=== PATIENT | male | born 1940 | race Caucasian/White ===

== ENCOUNTER 2019-08-10 08:43 | Day surgery (SDC) | payer MEDICARE ==
[~2019-08-10] VITALS: Ht 188 cm; Wt 109.0 kg
[~2019-08-10 08:43] MED LIST: AMIO200T42 PO; ASPI-496 PO; CHOL5000 PO; DABI150C PO; FERR325T18 PO; GLUC15006 PO; HYDR25TA6 PO; LANS30CA PO; LEVO112T4 PO; LEVO150T5 PO; LOSA25TA25 PO; METO-99 PO; POTA25PA PO; PRAV40TA2 PO; SUCR1TAB33 PO; TAMS0.4C2 PO; UBID50TA PO
[2019-08-10 09:06] VITALS: BP 145/95
[2019-08-10] MEDS ORDERED: WARF2TAB PO (09:18)
[2019-08-10] MEDS ORDERED: HYDROCHLOROTH12.5 MG PO (09:19)
[2019-08-10] MEDS ORDERED: LOSA50TA14 PO (09:19)
[2019-08-10] MEDS ORDERED: PRAV20TA PO (09:21)
[2019-08-10] MEDS ORDERED: SODIUM CHLORIDE 0.9% 1,000 ML IV ONE (09:30)
[2019-08-10] MEDS ORDERED: PROPOFOL 10 MG/ML, 20ML ONE (10:44)
== END 2019-08-10 12:01 | disposition home or self-care (01) ==
LOC: CACL 08:43
PROVIDERS: ATTEND Internal Medicine Cardiovascular Disease
DX: I48.0 Paroxysmal atrial fibrillation (principal); I08.0 Rheumatic disorders of both mitral and aortic valves; I70.0 Atherosclerosis of aorta; I25.3 Aneurysm of heart; I10 Essential (primary) hypertension; E78.5 Hyperlipidemia, unspecified; E03.9 Hypothyroidism, unspecified; E66.3 Overweight; Z68.30 Body mass index [BMI] 30.0-30.9, adult; Z79.01 Long term (current) use of anticoagulants; Z79.82 Long term (current) use of aspirin; Z79.890 Hormone replacement therapy; Z79.899 Other long term (current) drug therapy; Z95.0 Presence of cardiac pacemaker
CPT/HCPCS: 93312; 93325; J2704

== ENCOUNTER 2020-03-15 10:06 | Outpatient (CLI) | payer MEDICARE ==
[~2020-03-15 10:06] MED LIST changes: +HYDROCHLOROTH12.5 MG PO; +LOSA50TA14 PO; +PRAV20TA PO; +WARF2TAB PO
[2020-03-15] MEDS ORDERED: OMNIPAQUE 350 MG/ML, 100ML BOTTLE ONE (15:02)
== END 2020-03-15 23:59 | disposition home or self-care (01) ==
LOC: CFH 10:06
PROVIDERS: ATTEND Nurse Practitioner Primary Care
DX: K44.9 Diaphragmatic hernia without obstruction or gangrene (principal); K40.90 Unilateral inguinal hernia, without obstruction or gangrene, not specified as recurrent; K59.00 Constipation, unspecified
CPT/HCPCS: 74177; 82565; Q9967